=== PATIENT | female | born 1950 | race American Indian/Alaskan Native ===

== ENCOUNTER 2018-10-13 09:07 | Emergency (ER) | payer OTHER ==
[2018-10-13 09:36] LABS: Absolute Lymphocytes (CBC) 1.1 K/uL (0.7-4.9); Absolute Monocytes 0.3 K/uL (0.1-1.3); Absolute Neutrophil 8.3 K/uL (1.8-8.0); Basophils % 0.3 % (0-1.3); Eosinophils % 0.1 % (0-4.4); Hematocrit 44.6 % (36.0-45.0); MPV 8.5 fL (7.6-11.3); Monocytes % 2.7 % (3.3-12.3)
[2018-10-13 09:53] LABS: Albumin 4.7 g/dL (3.4-5.0); Bilirubin Direct 0.2 mg/dL (0-0.2); Bilirubin Total 0.8 mg/dL (0.2-1.0); Potassium 3.2 mmol/L (3.5-5.1); Protein, Total 9.4 g/dL (6.4-8.2)
[2018-10-13 10:01] LABS: Protime INR 0.99
[2018-10-13] MEDS ORDERED: MECLIZINE HCL 12.5 MG TAB ONE (10:02)
[2018-10-13] MEDS ORDERED: ONDANSETRON 4 MG/2 ML VIAL ONE ×2 (10:02→11:20)
[2018-10-13] MEDS ORDERED: FOLIC ACID 5 MG/ML VIAL ONE (10:04)
[2018-10-13] MEDS ORDERED: NA CHLORIDE 0.9% 1,000 ML ONE (10:04)
[2018-10-13 10:15] LABS: Magnesium 2.2 mg/dL (1.8-2.4); NT PRO-BNP 378 pg/mL (<125); Troponin (Emerg Dept Use Only) < 0.02 ng/mL (0.0-0.045)
--- NOTE | 2018-10-13 10:15 | RAD REPORT ---
EXAM DESCRIPTION: CT - Head Brain Wo Cont - 10/13/2018 10:08 am CLINICAL HISTORY: Dizziness, vomiting, headache COMPARISON: None. TECHNIQUE: Axial 5 mm thick images of the head were obtained without IV contrast. All CT scans are performed using dose optimization technique as appropriate and may include automated exposure control or mA/KV adjustment according to patient size. FINDINGS: A 3.3 x 2.5 centimeter intraparenchymal hematoma is present within the central aspect of t he right cerebellum. The anteromedial aspect of this hematoma appears to extend into the fourth ventr icle. The lateral and third ventricles are still within normal limits in size. Patient does have some underlying mild atrophy and chronic ischemic change. No nonhemorrhagic of acute cortical based infar ction seen. No cortical edema or sulcal effacement. Mastoid air cells and visualized portions of the paranasal sinuses are clear. No acute bony findings. Findings telephoned to doctor Judd 10:08 a.m. IMPRESSION: Approximately 3.3 centimeter acute intraparenchymal hemorrhage right cerebellum. Blood extends into the fourth ventricle but there is no hydrocephalus at this time. Mild underlying atrophy and chronic ischemic change.
--- NOTE | 2018-10-13 10:28 | RAD REPORT ---
EXAM DESCRIPTION: RAD - Chest Single View - 10/13/2018 10:18 am CLINICAL HISTORY: COUGH Chest pain. COMPARISON: No comparisons FINDINGS: Portable technique limits examination quality. The lungs are grossly clear. The heart is normal in size. No displaced fractures. IMPRESSION: No acute intrathoracic process suspected.
--- NOTE | 2018-10-13 10:31 | ER ---
Nurse's Notes 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 Transition of care: patient was not received from another setting of care. Onset of symptoms was October 13, 2018. Risk Assessment: Do you want to hurt yourself or someone else? Patient reports no desire to harm self or others. Initial Sepsis Screen: Does the patient meet any 2 criteria? No. Patient's initial sepsis screen is negative. Does the patient have a suspected source of infection? No. Patient's initial sepsis screen is negative. Care prior to arrival: None. 09:17 Method Of Arrival: Wheelchair tw2 09:17 Acuity: GABBY 2 tw2 Triage Assessment: 09:19 General: Appears uncomfortable, slender, Behavior is fussy. Pain: Denies pain. Neuro: tw2 Reports dizziness. GI: Reports nausea, vomiting. Historical: - Allergies: 09:20 Sulfa (Sulfonamide Antibiotics); tw2 - Home Meds: 09:20 Norvasc 5 mg Oral tab 1 tab once daily [Active]; Lexapro 10 mg Oral tab 1 tab once tw2 daily [Active]; - PMHx: 09:20 Hypertension; tw2 - Immunization history:: Adult Immunizations. - Social history:: Smoking status: . - Ebola Screening: : Patient denies travel to an Ebola-affected area in the 21 days before illness onset. - Family history:: not pertinent. Screenin:36 Abuse screen: Denies threats or abuse. Nutritional screening: No deficits noted. tw2 Tuberculosis screening: No symptoms or risk factors identified. Fall Risk Secondary diagnosis (15 points) impaired mobility. Assessment: 09:11 General: Appears uncomfortable, slender, Behavior is cooperative, appropriate for age. tw2 Pain: Complains of pain in abdomen. Neuro: Level of Consciousness is awake, alert, obeys commands, Oriented to person, place, time, situation. Neuro: Reports dizziness. Cardiovascular: Heart tones S1 S2 Patient's skin is warm and dry. Respiratory: Airway is patent Respiratory effort is even, unlabored, Respiratory pattern is regular, symmetrical, Breath sounds are clear bilaterally. GI: Abdomen is flat, Bowel sounds present X 4 quads. Reports nausea, vomiting. : No signs and/or symptoms were reported regarding the genitourinary system. EENT: No signs and/or symptoms were reported regarding the EENT system. Derm: No signs and/or symptoms reported regarding the dermatologic system. Musculoskeletal: Range of motion: intact in all extremities. 09:35 Reassessment: dr. judd at bedside at this time. tw2 Vital Signs: 09:18 BP 182 / 95; Pulse 82; Resp 20; Temp 98.1(TE); Pulse Ox 100% on R/A; Weight 63.5 kg tw2 (R); Height 5 ft. 5 in. (165.10 cm); Pain 0/10; 10:17 BP 164 / 105; Pulse 71; Resp 17; Pulse Ox 100% on R/A; tw2 10:30 BP 182 / 95; Pulse 92; Resp 19; Pulse Ox 100% on R/A; tw2 10:35 BP 181 / 101; Pulse 75; Resp 19; Pulse Ox 100% on R/A; tw2 10:40 BP 147 / 80; Pulse 88; Resp 17; Pulse Ox 100% on R/A; tw2 10:45 BP 152 / 82; Pulse 92; Resp 19; Pulse Ox 100% on R/A; tw2 10:50 BP 136 / 76; Pulse 87; Resp 17; Pulse Ox 100% on R/A; tw2 10:55 BP 140 / 78; Pulse 91; Resp 17; Pulse Ox 100% on R/A; tw2 11:00 BP 138 / 77; Pulse 92; Resp 20; Pulse Ox 100% on R/A; tw2 09:18 Body Mass Index 23.30 (63.50 kg, 165.10 cm) tw2 ED Course: 09:08 Patient arrived in ED. mr 09:14 Palmer Judd MD is Attending Physician. kate 09:17 Ludmila Solorzano, LEATHA is Primary Nurse. tw2 09:18 Triage completed. tw2 09:18 Arm band placed on. tw2 09:20 Bed in low position. Side rails up X2. Adult w/ patient. [employer] dispatcher on. Pulse ox tw2 on. NIBP on. 09:30 Initial lab(s) drawn, by me, sent to lab. Inserted saline lock: 22 gauge in right kj1 antecubital area, using aseptic technique. 09:36 EKG done, by carpet technician. reviewed by Palmer Judd MD. sm3 10:09 CT Head Brain wo Cont In Process Unspecified. EDMS 10:17 X-ray completed. Portable x-ray completed in exam room. Patient tolerated procedure sw well. 10:18 XRAY Chest (1 view) In Process Unspecified. EDMS 10:30 No provider procedures requiring assistance completed. tw2 10:45 Inserted saline lock: 20 gauge in left antecubital area, using aseptic technique. tw2 ,using aseptic technique. per LEATHA Escobar. 11:00 Patient transferred, IV remains in place. tw2 Administered Medications: Discontinued: NS 0.9% 500 ml IV at bolus once Discontinued: NS 0.9% 1000 ml IV at 125 ml/hr continuous 09:52 Drug: Zofran 4 mg Route: IVP; Site: right antecubital; tw2 10:26 Follow up: Response: No adverse reaction; Nausea is decreased tw2 09:54 Drug: foLIC Acid 1 mg Route: IVPB; Site: right antecubital; tw2 09:56 Follow up: IV Status: Completed infusion tw2 10:16 Drug: NS 0.9% 500 ml Route: IV; Rate: bolus; Site: left antecubital; tw2 10:17 Drug: NS 0.9% 1000 ml Route: IV; Rate: 125 ml/hr; Site: left antecubital; tw2 10:19 Not Given (Duplicate Order): Meclizine 50 mg PO once kate 10:24 Drug: Cardene 5 mg/hr Route: IV; Rate: per protocol; Site: left antecubital; tw2 11:00 Follow up: IV Status: Infusion continued upon transfer tw2 10:46 Drug: fentaNYL (PF) 25 mcg Route: IVP; Site: left antecubital; tw2 11:00 Follow up: Response: No adverse reaction tw2 10:47 CANCELLED (Duplicate Order): fentaNYL (PF) 25 mcg IVP once tw2 10:56 Drug: Keppra 1000 mg Route: IV; Rate: per protocol; Site: left antecubital; tw2 11:07 Follow up: Response: No adverse reaction; IV Status: Completed infusion tw2 11:06 Drug: Zofran 4 mg Route: IVP; Site: left antecubital; tw2 11:17 Follow up: Response: No adverse reaction; Nausea is decreased tw2 11:07 Drug: NS 0.9% with KCl 20 mEq/L 1000 ml Route: IV; Rate: 100 ml/hr; Site: left tw2 antecubital; 11:07 Follow up: IV Status: Infusion continued upon transfer tw2 Outcome: 10:30 ER care complete, transfer ordered by MD. love 11:00 Instructed on the need for transfer. tw2 11:16 Transferred by helicopter to [facility]. tw2 11:16 Condition: stable 11:18 Patient left the ED. tw2 Signatures: Dispatcher [employer] EDMS Palmer Judd MD MD cha Rivera, Bella mr Vincent, Ludmila Delgado RN RN tw2 Saray Willoughby sm3 Yadira Canela kj1 Corrections: (The following items were deleted from the chart) 10:51 09:18 BP 182 / 95; Pulse 82bpm; Resp 20bpm; Pulse Ox 100% RA; Temp 98.1F Temporal; 56.7 tw2 kg Reported; Height 5 ft. 5 in.; BMI: 20.8; Pain 0/10; tw2
--- NOTE | 2018-10-13 10:31 | EDPHYS ---
Physician Documentation [facility] Name: Naif Rodriguez Age: 67 yrs Sex: Female : 1950 Arrival Date: 10/13/2018 Time: 09:08 Bed 13 Private MD: ED Physician Palmer Judd HPI: 10/13 09:41 This 67 yrs old Other Female presents to ER via Wheelchair with complaints of Vomiting. kate 09:41 The patient presents to the emergency department with nausea, vomiting. Onset: The kate symptoms/episode began/occurred last night. 09:41 Possible causes: unknown. The symptoms are aggravated by movement, The symptoms are kate alleviated by remaining still, supine position. The patient presents with dizziness, feeling off balance, sense of spinning. Modifying factors: The symptoms are alleviated by closing eyes, holding head still, the symptoms are aggravated by movement of head, standing up, changing position. Associated signs and symptoms: Pertinent positives: nausea, vomiting. Severity of symptoms: At their worst the symptoms were moderate in the emergency department the symptoms are unchanged. Historical: - Allergies: 09:20 Sulfa (Sulfonamide Antibiotics); tw2 - Home Meds: 09:20 Norvasc 5 mg Oral tab 1 tab once daily [Active]; Lexapro 10 mg Oral tab 1 tab once tw2 daily [Active]; - PMHx: 09:20 Hypertension; tw2 - Immunization history:: Adult Immunizations. - Social history:: Smoking status: . - Ebola Screening: : Patient denies travel to an Ebola-affected area in the 21 days before illness onset. - Family history:: not pertinent. ROS: 09:41 Constitutional: Negative for fever, chills, and weight loss, Eyes: Negative for injury, kate pain, redness, and discharge, ENT: Negative for injury, pain, and discharge, Neck: Negative for injury, pain, and swelling, Cardiovascular: Negative for chest pain, palpitations, and edema, Respiratory: Negative for shortness of breath, cough, wheezing, and pleuritic chest pain, Back: Negative for injury and pain, : Negative for injury, bleeding, discharge, and swelling, MS/Extremity: Negative for injury and deformity, Skin: Negative for injury, rash, and discoloration, Psych: Negative for depression, anxiety, suicide ideation, homicidal ideation, and hallucinations, Allergy/Immunology: Negative for hives, rash, and allergies, Endocrine: Negative for neck swelling, polydipsia, polyuria, polyphagia, and marked weight changes, Hematologic/Lymphatic: Negative for swollen nodes, abnormal bleeding, and unusual bruising. 09:41 Abdomen/GI: Positive for nausea, vomiting. 09:41 Neuro: Positive for dizziness. Exam: 09:41 Constitutional: This is a well developed, well nourished patient who is awake, alert, kate and in no acute distress. Head/Face: Normocephalic, atraumatic. Eyes: Pupils equal round and reactive to light, extra-ocular motions intact. Lids and lashes normal. Conjunctiva and sclera are non-icteric and not injected. Cornea within normal limits. Periorbital areas with no swelling, redness, or edema. ENT: Nares patent. No nasal discharge, no septal abnormalities noted. Tympanic membranes are normal and external auditory canals are clear. Oropharynx with no redness, swelling, or masses, exudates, or evidence of obstruction, uvula midline. Mucous membranes moist. Neck: Trachea midline, no thyromegaly or masses palpated, and no cervical lymphadenopathy. Supple, full range of motion without nuchal rigidity, or vertebral point tenderness. No Meningismus. Chest/axilla: Normal chest wall appearance and motion. Nontender with no deformity. No lesions are appreciated. Cardiovascular: Regular rate and rhythm with a normal S1 and S2. No gallops, murmurs, or rubs. Normal PMI, no JVD. No pulse deficits. Respiratory: Lungs have equal breath sounds bilaterally, clear to auscultation and percussion. No rales, rhonchi or wheezes noted. No increased work of breathing, no retractions or nasal flaring. Abdomen/GI: Soft, non-tender, with normal bowel sounds. No distension or tympany. No guarding or rebound. No evidence of tenderness throughout. Back: No spinal tenderness. No costovertebral tenderness. Full range of motion. Skin: Warm, dry with normal turgor. Normal color with no rashes, no lesions, and no evidence of cellulitis. MS/ Extremity: Pulses equal, no cyanosis. Neurovascular intact. Full, normal range of motion. Neuro: Awake and alert, GCS 15, oriented to person, place, time, and situation. Cranial nerves II-XII grossly intact. Motor strength 5/5 in all extremities. Sensory grossly intact. Cerebellar exam normal. Normal gait. Psych: Awake, alert, with orientation to person, place and time. Behavior, mood, and affect are within normal limits. 09:41 Musculoskeletal/extremity: DVT Exam: No signs of deep vein thrombosis. no pain, no swelling, no tenderness, negative Homans' sign noted on exam, no appreciated bluish discoloration, no erythema, no increased warmth. Vital Signs: 09:18 BP 182 / 95; Pulse 82; Resp 20; Temp 98.1(TE); Pulse Ox 100% on R/A; Weight 63.5 kg tw2 (R); Height 5 ft. 5 in. (165.10 cm); Pain 0/10; 10:17 BP 164 / 105; Pulse 71; Resp 17; Pulse Ox 100% on R/A; tw2 10:30 BP 182 / 95; Pulse 92; Resp 19; Pulse Ox 100% on R/A; tw2 10:35 BP 181 / 101; Pulse 75; Resp 19; Pulse Ox 100% on R/A; tw2 10:40 BP 147 / 80; Pulse 88; Resp 17; Pulse Ox 100% on R/A; tw2 10:45 BP 152 / 82; Pulse 92; Resp 19; Pulse Ox 100% on R/A; tw2 10:50 BP 136 / 76; Pulse 87; Resp 17; Pulse Ox 100% on R/A; tw2 10:55 BP 140 / 78; Pulse 91; Resp 17; Pulse Ox 100% on R/A; tw2 11:00 BP 138 / 77; Pulse 92; Resp 20; Pulse Ox 100% on R/A; tw2 09:18 Body Mass Index 23.30 (63.50 kg, 165.10 cm) tw2 MDM: 09:14 Patient medically screened. [facility] 09:43 Data reviewed: vital signs, nurses notes, lab test result(s), EKG, radiologic studies, [facility] CT scan, doppler, MRI, plain films. 10/13 09:23 Order name: Basic Metabolic Panel; Complete Time: 10:17 tw2 10/13 09:23 Order name: CBC with Diff; Complete Time: 10:17 2 10/13 09:23 Order name: Creatinine for Radiology; Complete Time: 10:17 10/13 09:23 Order name: Hepatic Function; Complete Time: 10:17 10/13 09:23 Order name: Lipase; Complete Time: 10:17 10/13 09:40 Order name: Magnesium; Complete Time: 10:17 [facility] 10/13 09:40 Order name: NT PRO-BNP; Complete Time: 10:17 [facility] 10/13 09:40 Order name: PT-INR; Complete Time: 10:10/13 09:40 Order name: Troponin (emerg Dept Use Only); Complete Time: 10:10/13 09:40 Order name: XRAY Chest (1 view); Complete Time: 10:47 10/13 09:40 Order name: CT Head Brain wo Cont; Complete Time: 10: [facility] 10/13 09:23 Order name: IV Saline Lock; Complete Time: 09:28 10/13 09:23 Order name: Labs collected and sent; Complete Time: 09:28 10/13 09:23 Order name: EKG; Complete Time: 09:27 10/13 09:23 Order name: EKG - Nurse/Tech; Complete Time: 10:07 10/13 09:40 Order name: Cardiac monitoring; Complete Time: 09:45 [facility] 10/13 09:40 Order name: O2 Per Protocol; Complete Time: 09:46 [facility] 10/13 09:40 Order name: O2 Sat Monitoring; Complete Time: 09:46 [facility] 10/13 10:31 Order name: IV Saline Lock - Large Bore; Complete Time: 10:47 [facility] 10/13 10:37 Order name: NPO; Complete Time: 10:47 [facility] Administered Medications: Discontinued: NS 0.9% 500 ml IV at bolus once Discontinued: NS 0.9% 1000 ml IV at 125 ml/hr continuous 09:52 Drug: Zofran 4 mg Route: IVP; Site: right antecubital; tw2 10:26 Follow up: Response: No adverse reaction; Nausea is decreased tw2 09:54 Drug: foLIC Acid 1 mg Route: IVPB; Site: right antecubital; tw2 09:56 Follow up: IV Status: Completed infusion tw2 10:16 Drug: NS 0.9% 500 ml Route: IV; Rate: bolus; Site: left antecubital; tw2 10:17 Drug: NS 0.9% 1000 ml Route: IV; Rate: 125 ml/hr; Site: left antecubital; tw2 10:19 Not Given (Duplicate Order): Meclizine 50 mg PO once [facility] 10:24 Drug: Cardene 5 mg/hr Route: IV; Rate: per protocol; Site: left antecubital; tw2 11:00 Follow up: IV Status: Infusion continued upon transfer tw2 10:46 Drug: fentaNYL (PF) 25 mcg Route: IVP; Site: left antecubital; tw2 11:00 Follow up: Response: No adverse reaction tw2 10:47 CANCELLED (Duplicate Order): fentaNYL (PF) 25 mcg IVP once tw2 10:56 Drug: Keppra 1000 mg Route: IV; Rate: per protocol; Site: left antecubital; tw2 11:07 Follow up: Response: No adverse reaction; IV Status: Completed infusion tw2 11:06 Drug: Zofran 4 mg Route: IVP; Site: left antecubital; tw2 11:17 Follow up: Response: No adverse reaction; Nausea is decreased tw2 11:07 Drug: NS 0.9% with KCl 20 mEq/L 1000 ml Route: IV; Rate: 100 ml/hr; Site: left tw2 antecubital; 11:07 Follow up: IV Status: Infusion continued upon transfer tw2 Disposition: 10/13/18 10:30 Transfer ordered to [facility]. 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 - Reason for transfer: Higher level of care. - Accepting physician is to [facility] [place] [facility]. - Condition is Critical. - Problem is new. - Symptoms have improved. Signatures: Dispatcher [employer] Palmer Styles MD MD cha Wise, Tara RN RN tw2 Corrections: (The following items were deleted from the chart) 10:47 10:38 fentaNYL (PF) 25 mcg IVP once ordered. [facility] tw2 10:49 10:30 10/13/2018 10:30 Transfer ordered to [facility]. 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 Reason for transfer: Higher level of care. Accepting physician is to [facility] [place]. Condition is Critical. Problem is new. Symptoms have improved. kate 11:03 09:43 Carotid Artery Bilateral+US.RAD.BRZ ordered. EDMS EDMS 11:18 10:49 10/13/2018 10:30 Transfer ordered to [facility]. 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 Reason for transfer: Higher level of care. Accepting physician is to [facility] [place]. Condition is Critical. Problem is new. Symptoms have improved. kate
[2018-10-13] MEDS ORDERED: Nicardipine/NS 25 MG/250 ML KIT IV ONE (10:37)
[2018-10-13] MEDS ORDERED: levETIRAcetam 1,000 MG in NA CHLORIDE 0.9% 100 ML IV ONE (11:00)
[2018-10-13] MEDS ORDERED: FENTANYL CITR 100 MCG/2 ML ONE (11:00)
[2018-10-13] MEDS ORDERED: KCL 20 MEQ/100 mL IVPB 20 MEQ/100 ML BAG IV ONE (11:09)
--- NOTE | 2018-10-14 08:07 | EKG ---
Test Date: 2018-10-13 Test Time: 09:34:20 Telegraph Messenger: NAHOMY MEASUREMENT RESULTS: Intervals: Rate: 79 IA: 160 QRSD: 82 QT: 428 QTc: 490 [place]: P: 67 IA: 160 QRS: 59 T: 111 INTERPRETIVE STATEMENTS: Normal sinus rhythm with sinus arrhythmia Possible Left atrial enlargement Possible Anterior infarct, age undetermined ST & T wave abnormality, consider lateral ischemia Abnormal ECG No previous ECG available for comparison Electronically Signed On 10-14-18 08:07:14 CDT by Jose Manuel Medina
== END 2018-10-13 11:18 | disposition short-term general hospital (02) ==
LOC: ER 09:07
DX: I61.4 Nontraumatic intracerebral hemorrhage in cerebellum (principal); E87.6 Hypokalemia; R11.2 Nausea with vomiting, unspecified; R42 Dizziness and giddiness; I10 Essential (primary) hypertension; Z88.2 Allergy status to sulfonamides
CPT/HCPCS: 93005; 85025; 80048; 36415; 83735; 85610; 80076; 84484; 83690; 83880; 70450; 71045; 99285; J3010; J1953; J7030; J2405 ×2